=== PATIENT | male | born 1985 | race Caucasian/White ===

== ENCOUNTER 2023-12-18 12:00 | Emergency (ER) | payer SELFPAY ==
[~2023-12-18] VITALS: Ht 180.3 cm; Wt 88.5 kg
[2023-12-18 12:02] VITALS: BP_SYST 155; PULSE 108; RESP 18; TEMP 97.7; O2SAT 96
[2023-12-18 12:30] VITALS: BP_SYST 155; PULSE 108; RESP 18; TEMP 97.7; O2SAT 96
== END 2023-12-18 12:28 ==
LOC: SED 12:00
DX: Z04.1 Encounter for examination and observation following transport accident (principal); I10 Essential (primary) hypertension; F10.90 Alcohol use, unspecified, uncomplicated; Y90.9 Presence of alcohol in blood, level not specified
CPT/HCPCS: 99283